=== PATIENT | female | born 1990 | race Caucasian/White ===

== ENCOUNTER 2017-06-08 11:05 | Inpatient (IN) | payer MEDICAID, SELFPAY ==
[2017-06-08 11:22] VITALS: BMI 48.4
[2017-06-08] MEDS: Lactated Ringers 1,000 ML 50 ML IV ×2 (11:42→14:54)
[2017-06-08 12:03] LABS: Hematocrit 33.6 % (37-47); Hemoglobin 10.9 g/dl (12.0-15.0); Mean Corp Hgb Conc 32.4 g/gl (32-36); Mean Corpuscular Hgb 27.4 pg (27.0-32.0); Mean Corpuscular Volume 84.4 fL (81-99); Mean Platelet Vol. 12.3 fl (6.2-12.0); Platelet Count 221 K/mm3 (150-450); RBC Distribution Width SD 46.5 fl (35.1-43.9); Red Blood Count 3.98 M/mm3 (4.2-5.4); Scan Indicated on CBC? Y/N NO; White Blood Count 9.3 K/mm3 (4.4-11.0)
[2017-06-08] MEDS: Oxytocin 30 units/NS 500 ml 30 UNITS/500 ML IV.SOLN IV (12:31)
[2017-06-08] MEDS: Mag Hydrox/Al Hydrox/Simeth 30 ML UDC PO (15:51)
[2017-06-08] MEDS: Oxytocin 30 units/NS 500 ml 30 UNITS/500 ML IV.SOLN 334 UNITS IV (17:25)
--- NOTE | 2017-06-08 17:39 | PCM.OB.VAG ---
Vaginal Delivery Maternal Presentation: Medically Indicated Induction Method of Induction: Pitocin, Amniotomy Medical Reason for Induction: - - polyhydramnios Amniotic Membrane Rupture Type: Artificial Amniotic Fluid Description: Clear Final EDYTA: 06/14/17 Final EDYTA Source: US <20 weeks Gestational age: 39 Weeks and 1 Days Date of Procedure: 06/08/17 Pre-Operative Diagnosis: labor Post-Operative Diagnosis: same Surgery/ Procedure Performed: Spontaneous Vaginal Delivery Type of Anesthesia: Epidural Description of Procedure: A vigorous female infant was delivered JERONIMO over intact perineum. Tight nuchal cord ?1 was easily reduced. The remainder the was not delivered with maternal pushing and gentle traction for 15 seconds. The patient was placed in Radha position and with another 15 seconds of pushing the shoulders rotated and delivered only gentle traction. No fundal pressure was given did the total time from head to total delivery was 32 seconds. The Pitocin infusion was initiated for active management of the third stage. The cord was clamped and cut quickly as the infant was not initially vigorous. The was attended to by the waiting nursing staff and integrated circuits inspector. The placenta was delivered spontaneously and intact. The cervix and vagina were intact. Sponge and needle counts were correct. A vaginal sweep was completed by me. Presentation: JERONIMO Placenta Disposition: [facility] Cord Vessel Description: 3 Vessels Nuchal Cord Compression: Without compression Cord Gases drawn per routine: ABG, VBG Cord Entanglement: Around neck x 1, tight Drain: Del Angel to straight drain Estimated Blood Loss: 300 A gender: Female (1 minute): 8 (5 minute): 9 Episiotomy Description: None Laceration: None Medications given after delivery: IV Pitocin Complications: None
--- NOTE | 2017-06-08 17:42 | PCM.HP.OB ---
History Date of Admission: 06/08/17 Gestational age: 39 History of this : 26-year-old 3 para 2 female with EDC of 06/14/2017 by last menstrual period confirmed by first trimester ultrasound who presents from the office for induction of labor. She was measuring large for gestational age. She had an estimated weight last week that revealed the infant was in the 93rd percentile with an amniotic fluid volume of 24 cm. Today repeat ultrasound was done revealed a vertex fetus with an amniotic fluid volume of 28.3 cm. Induction of labor was recommended. Patient's had no regular contractions. No vaginal bleeding or leaking of fluid. She has had good movements. She has been very uncomfortable the last couple of weeks. Past medical history significant for genital herpes, anxiety, obesity with BMI of 48, and she is rubella nonimmune, abnormal pap smear Metrical history: She has had 2 previous full-term vaginal deliveries without complications Family history: Noncontributory Past surgical history: Allergies No Known Allergies Allergy (Verified 03/13/17 19:22) Current Medications Acetaminophen (Tylenol) 325 - 650 mg PO Q4H PRN PRN PRN Reason: PAIN OR FEVER >100.4F Al Hydroxide/Mg Hydroxide (Mylanta Ii) 15 - 30 ml PO Q4H PRN PRN PRN Reason: INDIGESTION Last Admin: 06/08/17 15:51 Dose: 30 ml Citric Acid/Sodium Citrate (Bicitra) 30 ml PO UD PRN Penicillin G Potassium/Dextrose (Penicillin G Potassium) 3 mu in 50 mls @ 100 mls/hr IV Q4H [facility] Last Admin: 06/08/17 16:00 Dose: 100 mls/hr Lactated Ringer's () 1,000 mls @ 50 mls/hr IV .Q20H [facility] Last Admin: 06/08/17 14:54 Dose: 50 mls/hr Oxytocin/Sodium Chloride () 30 units in 500 mls @ 1 mls/hr IV .Q500H [facility] Last Admin: 06/08/17 12:31 Dose: 1 mls/hr Nalbuphine HCl (Nubain) 5 - 10 mg IV Q3H PRN PRN PRN Reason: PAIN (4-10/10) Ondansetron HCl (Zofran) 4 mg IV Q8H PRN PRN PRN Reason: NAUSEA Promethazine HCl (Phenergan (Ll)) 6.25 - 12.5 mg IV Q4H PRN PRN; Protocol PRN Reason: IF NAUSEA PERSISTS Sodium Chloride () 5 - 15 ml IV UD [facility] Last Admin: 06/08/17 12:11 Dose: Not Given Smoking Status: Current every day smoker Alcohol: None Drug Use: none Number of Fetus(es): 1 Review of Systems Constitutional: Denies: Chills, Fever Eyes: Denies: Double vision Cardiovascular: Denies: Chest Pain Respiratory: Denies: Cough Physical Exam General: Alert, Cooperative, No apparent distress Cardiovascular: Regular rate Lungs: Normal air movement Abdomen: Soft, Non-Distended, Gravid, Tender, - - large for gestation alge Extremities:: Other - edema 1+ Estimated gestational size: Large for gestational age Presentation: Cephalic Cervix Dilation (cm): 3 - AROM w/ large clear fluid Station: -3 Effacement (%): 70 Assessment/Plan 26-year-old 3 para 2 female at 39-1/7 weeks gestation for induction of labor due to polyhydramnios 1. Pitocin and artificial rupture membranes induction of labor 2. Estimated weight is less than 4500 g and pelvis is clinically adequate to expect vaginal delivery 3. Epidural or nitrous oxide as needed for pain control
--- NOTE | 2017-06-08 17:47 | HP.PCM_ITS ---
History Date of Admission: 06/08/17 Gestational age: 39 History of this : 26-year-old 3 para 2 female with EDC of 06/14/2017 by last menstrual period confirmed by first trimester ultrasound who presents from the office for induction of labor. She was measuring large for gestational age. She had an estimated weight last week that revealed the infant was in the 93rd percentile with an amniotic fluid volume of 24 cm. Today repeat ultrasound was done revealed a vertex fetus with an amniotic fluid volume of 28.3 cm. Induction of labor was recommended. Patient's had no regular contractions. No vaginal bleeding or leaking of fluid. She has had good movements. She has been very uncomfortable the last couple of weeks. Past medical history significant for genital herpes, anxiety, obesity with BMI of 48, and she is rubella nonimmune, abnormal pap smear Metrical history: She has had 2 previous full-term vaginal deliveries without complications Family history: Noncontributory Past surgical history: Allergies No Known Allergies Allergy (Verified 03/13/17 19:22) Current Medications Acetaminophen (Tylenol) 325 - 650 mg PO Q4H PRN PRN PRN Reason: PAIN OR FEVER >100.4F Al Hydroxide/Mg Hydroxide (Mylanta Ii) 15 - 30 ml PO Q4H PRN PRN PRN Reason: INDIGESTION Last Admin: 06/08/17 15:51 Dose: 30 ml Citric Acid/Sodium Citrate (Bicitra) 30 ml PO UD PRN Penicillin G Potassium/Dextrose (Penicillin G Potassium) 3 mu in 50 mls @ 100 mls/hr IV Q4H [facility] Last Admin: 06/08/17 16:00 Dose: 100 mls/hr Lactated Ringer's () 1,000 mls @ 50 mls/hr IV .Q20H [facility] Last Admin: 06/08/17 14:54 Dose: 50 mls/hr Oxytocin/Sodium Chloride () 30 units in 500 mls @ 1 mls/hr IV .Q500H [facility] Last Admin: 06/08/17 12:31 Dose: 1 mls/hr Nalbuphine HCl (Nubain) 5 - 10 mg IV Q3H PRN PRN PRN Reason: PAIN (4-10/10) Ondansetron HCl (Zofran) 4 mg IV Q8H PRN PRN PRN Reason: NAUSEA Promethazine HCl (Phenergan (Ll)) 6.25 - 12.5 mg IV Q4H PRN PRN; Protocol PRN Reason: IF NAUSEA PERSISTS Sodium Chloride () 5 - 15 ml IV UD [facility] Last Admin: 06/08/17 12:11 Dose: Not Given Smoking Status: Current every day smoker Alcohol: None Drug Use: none Number of Fetus(es): 1 Review of Systems Constitutional: Denies: Chills, Fever Eyes: Denies: Double vision Cardiovascular: Denies: Chest Pain Respiratory: Denies: Cough Physical Exam General: Alert, Cooperative, No apparent distress Cardiovascular: Regular rate Lungs: Normal air movement Abdomen: Soft, Non-Distended, Gravid, Tender, - - large for gestation alge Extremities:: Other - edema 1+ Estimated gestational size: Large for gestational age Presentation: Cephalic Cervix Dilation (cm): 3 - AROM w/ large clear fluid Station: -3 Effacement (%): 70 Assessment/Plan 26-year-old 3 para 2 female at 39-1/7 weeks gestation for induction of labor due to polyhydramnios 1. Pitocin and artificial rupture membranes induction of labor 2. Estimated weight is less than 4500 g and pelvis is clinically adequate to expect vaginal delivery 3. Epidural or nitrous oxide as needed for pain control
[2017-06-08] MEDS: Oxytocin 30 units/NS 500 ml 30 UNITS/500 ML IV.SOLN 167 UNITS IV (17:55)
[2017-06-08] MEDS: 0.9% Saline Lock 10 ML Syringe IV (19:30)
[2017-06-09] VITALS: BP 119/76; PULSE 83; RESP 20; TEMP 36.8
[2017-06-09] MEDS: Naproxen 250 MG Tablet PO ×2 (00:13→10:25)
[2017-06-09] MEDS: Acetaminophen 500 MG Tablet 1000 MG PO ×2 (03:53→17:53)
[2017-06-09 03:54] VITALS: BP 119/72; PULSE 73; RESP 18; TEMP 36.7
[2017-06-09 08:00] VITALS: BP 126/62; PULSE 90; RESP 16; TEMP 36.9
--- NOTE | 2017-06-09 09:51 | PCM.PN.OB ---
Subjective: Patient reports some back pain near epidural site - Physical Exam General: Alert, Oriented x3 Abdomen: Soft - ff mid & below umb, Non Tender, Non-Distended Extremities: No Calf Tenderness Vital Signs Temp Pulse Resp BP 98.4 F 90 16 126/62 H 06/09/17 08:00 06/09/17 08:00 06/09/17 08:00 06/09/17 08:00 Oxygen Delivery Method Room Air Weight: 273 lb 13.026 oz Body Mass Index (BMI) 48.4 Intake and Output for Last 24 Hours 06/07/17 06/08/17 06/09/17 23:59 23:59 23:59 Intake Total 2220 / 2220 Output Total 780 / 780 400 / 400 Balance 1440 / 1440 -400 / -400 Laboratory Tests Past 24 Hrs 06/08/17 06/08/17 11:40 11:40 WBC 9.3 RBC 3.98 L Hgb 10.9 L Hct 33.6 L MCV 84.4 MCH 27.4 MCHC 32.4 RDW 15.0 H RDW Differential 46.5 H Plt Count 221 MPV 12.3 H Blood Type A POSITIVE Antibody Screen NEGATIVE Assessment/Plan PPD#1 Routine care Back pain - cont meds PRN, heat to back
[2017-06-09 12:00] VITALS: BP 150/75; PULSE 74; RESP 16; TEMP 36.8
[2017-06-09 16:00] VITALS: BP 154/65; PULSE 53; RESP 16; TEMP 36.8
[2017-06-09 19:51] VITALS: BP 120/78; PULSE 65; RESP 18; TEMP 36.7; O2SAT 99
[2017-06-10 02:00] VITALS: BP 123/58; PULSE 62; RESP 18; TEMP 37; O2SAT 98
[2017-06-10] MEDS: Naproxen 250 MG Tablet PO (02:06)
[2017-06-10 07:44] VITALS: BP 116/72; PULSE 68; RESP 16; TEMP 36.8
[2017-06-10 08:40] VITALS: BP 130/79
--- NOTE | 2017-06-10 09:57 | PCM.DCVAG ---
Discharge Diet: No Restrictions Discharge Activity: May Drive, May Shower May resume sexual activity in: 4-6 weeks Weight Bearing Status: Weight bearing as tolerated Additional Instructions: If you experience any of the following, contact your healthcare provider. Bleeding that soaks a pad every hour for 2 hours Fever 100.4 or higher Unrelieved incision or abdominal pain Swelling, redness, discharge or bleeding from your incision or episiotomy site Your incision begins to separate Problems urinating (including inability to urinate or burning while urinating). Visual changes Severe headache Flu-like symptoms Pain or redness in one of both of your breasts Pain, warmth, tenderness or swelling in your legs, especially the calf area Frequent nausea and vomiting Symptoms of depression or anxiety If you experience any of the following, call 911 or go to the nearest Emergency Room. Chest pain Problems breathing Seizure activity Partial or complete paralysis of a body part, slurred speech, weakness or drooping of the face, or a sudden inability to walk or hold your balance Please f/u in 3-5 days for a blood pressure check Allergies/Adverse Reactions: Allergies No Known Allergies Allergy (Verified 03/13/17 19:22) Medications to take at Discharge Ferrous Sulfate 324 mg PO DAILY 06/08/17 Naproxen [Naprosyn] 250 - 500 mg PO Q8H PRN PRN #40 tab 06/10/17 The following prescriptions were given: Naproxen [Naprosyn] 250 - 500 mg PO Q8H PRN PRN #40 tab PRN Reason: Mild Pain (-07/14) Primary Care Physician: Care Physician,No Primary [Primary Care Provider] -
--- NOTE | 2017-06-10 09:58 | DCINST_ITS ---
Discharge Diet: No Restrictions Discharge Activity: May Drive, May Shower May resume sexual activity in: 4-6 weeks Weight Bearing Status: Weight bearing as tolerated Additional Instructions: If you experience any of the following, contact your healthcare provider. * Bleeding that soaks a pad every hour for 2 hours * Fever 100.4 or higher * Unrelieved incision or abdominal pain * Swelling, redness, discharge or bleeding from your incision or episiotomy site * Your incision begins to separate * Problems urinating (including inability to urinate or burning while urinating) . * Visual changes * Severe headache * Flu-like symptoms * Pain or redness in one of both of your breasts * Pain, warmth, tenderness or swelling in your legs, especially the calf area * Frequent nausea and vomiting * Symptoms of depression or anxiety If you experience any of the following, call 911 or go to the nearest Emergency Room. * Chest pain * Problems breathing * Seizure activity * Partial or complete paralysis of a body part, slurred speech, weakness or drooping of the face, or a sudden inability to walk or hold your balance * * Please f/u in 3-5 days for a blood pressure check Allergies/Adverse Reactions: Allergies No Known Allergies Allergy (Verified 03/13/17 19:22) Medications to take at Discharge Ferrous Sulfate 324 mg PO DAILY 06/08/17 Naproxen [Naprosyn] 250 - 500 mg PO Q8H PRN PRN #40 tab 06/10/17 The following prescriptions were given: Naproxen [Naprosyn] 250 - 500 mg PO Q8H PRN PRN #40 tab PRN Reason: Mild Pain (-07/14) Primary Care Physician: Care Physician,No Primary [Primary Care Provider] -
--- NOTE | 2017-06-10 09:59 | PCM.PN.OB ---
Subjective: No complaints - Physical Exam General: Alert, Oriented x3 Abdomen: Soft, Non Tender, Non-Distended - ff mid &below umb Extremities: No Calf Tenderness Vital Signs Temp Pulse Resp BP Pulse Ox 98.2 F 68 16 130/79 H 98 06/10/17 07:44 06/10/17 07:44 06/10/17 07:44 06/10/17 08:40 06/10/17 02:00 Oxygen Delivery Method Room Air Weight: 273 lb 13.026 oz Body Mass Index (BMI) 48.4 Intake and Output for Last 24 Hours 06/08/17 06/09/17 06/10/17 23:59 23:59 23:59 Intake Total 2220 / 2220 Output Total 780 / 780 400 / 400 Balance 1440 / 1440 -400 / -400 Assessment/Plan PPD#2 D/c home BP normal but had 2 elevated yesterday, f/u later this week for BP check in office
== END 2017-06-10 10:30 | disposition home or self-care (01) | DRG 373 ==
PROVIDERS: Admitting Provider Obstetrics & Gynecology; Visit Provider Obstetrics & Gynecology
DX: O40.3XX0 Polyhydramnios, third trimester, not applicable or unspecified (principal); Z68.42 Body mass index [BMI] 45.0-49.9, adult; O69.1XX0 Labor and delivery complicated by cord around neck, with compression, not applicable or unspecified; O36.63X0 Maternal care for excessive fetal growth, third trimester, not applicable or unspecified; O99.214 Obesity complicating childbirth; E66.9 Obesity, unspecified; O99.334 Smoking (tobacco) complicating childbirth; Z3A.39 39 weeks gestation of pregnancy; Z37.0 Single live birth
CPT/HCPCS: 59050; 85027; 86850; 86900; 99218; J7120; A4216; G0378

== ENCOUNTER 2019-05-15 07:42 | Observation (INO) | payer MEDICAID, SELFPAY ==
--- NOTE | 2019-05-09 14:04 | PCM.HP.BLA ---
History and Physical Date of Admission: 05/15/19 HPI: The patient is a 28 year old female presenting for pre-operative visit. She is scheduled for?TVH??without BSO, for?menorrhagia and dysmenorrhea, has completed child bearing, previous tubal on?05/15/19. ??Procedure discussed along with risks, benefits and complications. ?Other alternatives discussed for management. Consent form signed??Yes.? PAST MEDICAL HISTORY PAST MEDICAL HISTORY Diagnosis Date ? Abnormal Pap smear of cervix 2008,2009 ? ascus ? Anemia ? ? Anxiety ? ? Dog bite of ankle 2001 ? fracture ? ? finger, sport accident ? Herpes simplex virus (HSV) infection ? ? Obesity 07/07/2009 ? Secondary amenorrhea 06/27/2011 ? ? PAST SURGICAL HISTORY PAST SURGICAL HISTORY Procedure Laterality Date ? TUBAL LIGATION Bilateral 08/16/2017 ? L/s bilateral salpingectomy ? ? CURRENT MEDICATIONS Current Outpatient Medications Medication Sig Dispense Refill ? ibuprofen (MOTRIN) 800 mg tablet Take 1 tablet by mouth every 8 hours as needed for Pain. Take with food. 30 tablet 0 ? No current facility-administered medications for this visit.? ? ALLERGIES:?Doxycycline ? PERSONAL HISTORY:? SOCIAL HISTORY Social History ? Tobacco Use ? Smoking status: Current Some Day Smoker ? ? Packs/day: 0.50 ? ? Years: 1.00 ? ? Pack years: 0.50 ? Smokeless tobacco: Never Used Substance Use Topics ? Alcohol use: No ? Drug use: No ? FAMILY HISTORY:? FAMILY HISTORY FAMILY HISTORY Problem Relation Age of Onset ? Asthma Mother ? ? Hypertension Father ? ? Cancer Maternal Grandfather ?STOMACH CANCER ? Diabetes Paternal Grandfather ? ? Hypertension Paternal Grandfather ? ? REVIEW OF SYMPTOMS: GENERAL: denies fevers or chills ENDOCRINOLOGY: has not been on steroids Cardiology : denies palpitations or chest pain Respiratory: denies SOB or cough Hematology: denies history of prolonged bleeding or easy bruising or VTE Allergy: Denies history of personal or family history of allergy to anesthesia ? PHYSICAL EXAMINATION: ? VITALS:?not currently . ? GENERAL:??The patient is well nourished, well hydrated in no acute distress. ?, The patient is oriented to time, place, and person. NECK:?Supple. No lynphadenopathy, normal thyroid, no thyromegaly. LUNGS:?Clear to auscultation bilaterally. no wheezes, rhonchi or rales HEART:?Regular rate and rhythm, Normal heart sounds and No murmurs or gallops ? PELVIC US 08/09/18: Report Summary: Overall impression: - Normal, anteverted uterus - No fibroids or polyps noted - EMS 7.7 mm - Normal bilateral ovaries - No free fluid in pelvic CDS. Recommendations / therapy: Clinical correlation. Indication: Abnormal Uterine Bleeding. History: Last menstrual period: 07/22/2018. 19th day of cycle. Gynecological History: Contraception: sterilization. Gynecological Ultrasonography: Uterus: normal, anteverted. Size: Longitudinal 88 mm. Anterio- posterior 44 mm. Transverse 47 mm. Volume: 95.3 ?ml. Endometrium: endometrium clearly visualized. Endometrium thickness total: 7.7 mm. Right Ovary: normal. Visible. Morphology: normal morphology. Right Ovary size: 23 mm x 21 mm x 18 mm. Volume: 4.6 ml. Left Ovary: normal. Visible. Morphology: normal morphology. Left Ovary size: 31 mm x 29 mm x 23 mm. Volume: 10.8 ml. Cul de Sac / Pouch of Stan: no free fluid visible. ? PAP 06/2016- negative EMB_ not indicated ? IMPRESSION:menorrhagia, deep dyspareunia, dysmenorrhea, postcoital bleeding ? PLAN:???28-year-old female who's completed childbearing who desires definitive therapy for her menorrhagia and dysmenorrhea in the form of a hysterectomy. ?We discussed that there is no guarantee for resolution of pelvic pain or dyspareunia after hysterectomy, and that she might need to undergo further therapies for this. ?Patient states understanding and agreement with plan. ?She understands she will permanently be unable to bear children. The risks/benefits/alternatives and personal involved for the planned?total vaginal hysterectomy?were reviewed with the patient. Her questions were answered to her satisfaction and she desires to proceed. ?Consent was signed. ?I reviewed with her postop instructions and expectations. ? ? I have reviewed and updated past medical and surgical history, medications and allergies. this history and physical was completed in my office on 05/09/2019.?
[2019-05-15] VITALS (16 sets, daily range): BP systolic 92–128; BP diastolic 43–78; PULSE 49–110; RESP 16–20; TEMP 36.2–37.1; O2SAT 88–100; BMI 45.7
[2019-05-15 05:51] LABS: Bedside Glucose 75 mg/dL (70-110)
[2019-05-15 06:04] LABS: Internal QC Validated? YES +Cl - CLEAR BKGD; Pregnancy, Urine Negative Negative
[2019-05-15] MEDS: Acetaminophen 500 MG Tablet 1000 MG PO ×3 (06:06→18:31)
[2019-05-15] MEDS: Gabapentin 600 MG Tablet PO (06:06)
[2019-05-15] MEDS: Celecoxib 200 MG Capsule 400 MG PO (06:06)
[2019-05-15] MEDS: Phenazopyridine 95 MG Tablet 190 MG PO (06:07)
[2019-05-15] MEDS: Enoxaparin 40 MG/0.4 ML Syringe SC (06:10)
[2019-05-15] MEDS: Lactated Ringers 1,000 ML 40 ML IV ×3 (06:18→21:04)
[2019-05-15] MEDS: Magnesium Sulfate 4gm/100mL 4 GM/100 ML IV.SOLN. IV (06:19)
[2019-05-15 06:49] LABS: Hematocrit 34.1 % (37-47); Hemoglobin 10.8 g/dL (12.0-15.0); Mean Corp Hgb Conc 31.7 g/dL (32-36); Mean Corpuscular Hgb 26.4 pg (27.0-32.0); Mean Corpuscular Volume 83.4 fL (81-99); Mean Platelet Vol. 12.8 fl (6.2-12.0); Platelet Count 224 K/mm3 (150-450); RBC Distribution Width CV 14.8 % (11.6-14.6); RBC Distribution Width SD 45.1 fl (35.1-43.9); Red Blood Count 4.09 M/mm3 (4.2-5.4)
[2019-05-15] MEDS: Cefazolin 2 GM in 0.9% Normal Saline 100 ML IV (07:30)
--- NOTE | 2019-05-15 07:30 | HYST_PTH ---
PATIENT: PEDRO DREW LOC: [facility] U#:[id number] AGE/SX: 28/F ROOM: [facility] RE05/15/[address]: Dr. Erin Watson MD : 1990 BED: 1 DIS: 05/16/2019 SPEC #: [id number] RECD: 05/15/19 09:08 STATUS: PRATEEK CHARLEE #: [id number] DAVION: 05/15/19 07:[address]: Erin Watson DEPT: SURGICAL PATHOLOGY RECD BY: Clinton Childs ENTERED: 05/15/19 11:39 SP TYPE: HYSTERECT OTHR DR: No Primary Care Phys Tissues: Uterus, NOS Procedures: Surgery Specimen Level V HEADER OPERATION: Vaginal hysterectomy, cystoscopy PRE-OP DIAGNOSIS: Abnormal uterine bleeding, pelvic pain TISSUE SUBMITTED: Uterus MICROSCOPIC DIAGNOSIS Uterus, hysterectomy: Cervix - mild chronic inflammation. Endometrium - secretory endometrium. Myometrium - adenomyosis. AM:tab 05/16/19 MICROSCOPIC DESCRIPTION Slides are reviewed. GROSS DESCRIPTION Received in fixative is one container labeled with the patient's name and designated uterus. The specimen consists of a hysterectomy specimen consisting of uterus with cervix weighing 95 gm and measuring 8 x 5.5 x 5 cm. The serosal surface is godfrey, glistening. Multiple instrumentation brown are noted. The ectocervical mucosa is unremarkable. The external os is circular in contour. The endocervical canal measures 3.5 cm in length and the endocervical mucosa is godfrey, glistening and unremarkable. The triangular endometrial cavity measures 4.5 cm in length and 0.5 cm in width. The endometrium is godfrey, glistening without any mass lesion and measures up to 0.2 cm in thickness. Sections of the uterine wall do not reveal any mass lesion and measures up to 2.3 cm in thickness. Electronics Engineer sections are submitted in six cassettes as follows: 1 - anterior cervix, 2 - posterior cervix, 3 & 4 - anterior uterine wall, 5 & 6 - posterior uterine wall. / SJ:tab 05/15/19 TC:5 CPT: 91295
[2019-05-15] MEDS: dexAMETHasone 10 MG/ML Vial 8 MG IV (07:45)
[2019-05-15] MEDS: Ondansetron 4 MG/2 ML Vial IV (08:00)
--- NOTE | 2019-05-15 08:42 | PCM.OPRPT ---
Report of Operation Date of Procedure: 05/15/19 Pre-Operative Diagnosis: Menorrhagia, abnormal uterine bleeding, dysmenorrhea, chronic pelvic pain Post-Operative Diagnosis: Same plus adenomyosis Surgery/Procedure Performed:: Vaginal hysterectomy Description of Surgical Findings:: Boggy appearing uterus, normal vagina, urethra, and cervix. Normal-appearing ovaries concrete vault maker: Ankita Garcia concrete vault maker: Marge Hunt [facility] Type of Anesthesia:: General Anesthesiologist: Mona Morin Special Medications: none Specimen's removed: uterus and cervix Drains: olmstead Estimated Blood Loss (mL): 10 Fluids Replaced: 500cc Description of Procedure: The patient was taken to the operating room where she was prepped and draped in the normal sterile fashion in the dorsal lithotomy position. A weighted speculum was placed in the vagina and the anterior lip of the cervix was grasped with a Beck clamp. The vaginal epithelium was infiltrated circumferentially around the cervix with 1% Xylocaine solution. An incision was made across the anterior cervix from 3-9 o'clock with a scalpel and the vaginal epithelium was dissected back with blunt and sharp dissection. The anterior colpotomy incision was made sharply. Entry into the anterior cul-de-sac was confirmed by visualization of the uterine fundus and bowel behind the uterus. The lower part of the vaginal epithelium by the cervix was clamped with James clamps, transected and suture-ligated. A second pedicle was secured in a James clamps ensuring that the anterior peritoneum was contained within it. This was clamped, transected and suture ligated and hemostasis was noted. The uterus was then brought through the anterior colpotomy incision and the utero-ovarian ligaments were clamped, transected and suture-ligated. The remaining portions of the cardinal ligaments and uterosacral ligaments were clamped with James clamps, transected and suture ligated. Excellent hemostasis was noted. Russ appeared normal. The tubes had been previously removed. The pedicles were all examined again and found to be hemostatic. The vaginal cuff was then reapproximated horizontally with interrupted 0 Vicryl [id number] sutures. Care was taken to ensure that the midportion of the vaginal cuff was attached to the lateral uterosacral ligaments. Excellent support was noted. The Olmstead was left to straight drain. The vaginal sweep was completed by me. All sponge lap and needle counts were correct. Patient was awakened and taken to theher recovery room in stable condition. Grafts/Implants Used: none - Complications none - Admit VTE Documentation VTE Present on Admission: No VTE Mechan Device Prophylaxis: SCD's VTE Pharm Prophylaxis ordered?: Yes
[2019-05-15] MEDS: Ketorolac 30 MG/ML Syringe IV ×2 (11:44→18:31)
[2019-05-15] MEDS: oxyCODONE 5 MG Tablet PO ×3 (12:36→21:04)
[2019-05-15] MEDS: Docusate Sodium 100 MG Capsule PO ×2 (12:36→21:04)
[2019-05-16 00:03] VITALS: BP 125/55; PULSE 96; RESP 16; TEMP 36.8; O2SAT 97
[2019-05-16] MEDS: Acetaminophen 500 MG Tablet 1000 MG PO ×2 (00:05→06:12)
[2019-05-16] MEDS: Ketorolac 30 MG/ML Syringe IV ×2 (00:06→05:56)
[2019-05-16 05:46] VITALS: BP 113/62; PULSE 68; RESP 16; TEMP 36.8; O2SAT 100
[2019-05-16 05:56] LABS: Hemoglobin 9.4 g/dL (12.0-15.0); Mean Corp Hgb Conc 31.3 g/dL (32-36); Mean Corpuscular Hgb 26.4 pg (27.0-32.0); Mean Corpuscular Volume 84.3 fL (81-99); Mean Platelet Vol. 12.9 fl (6.2-12.0); Platelet Count 196 K/mm3 (150-450); RBC Distribution Width CV 14.9 % (11.6-14.6); RBC Distribution Width SD 45.6 fl (35.1-43.9); Red Blood Count 3.56 M/mm3 (4.2-5.4); White Blood Count 11.8 K/mm3 (4.4-11.0)
[2019-05-16 07:26] VITALS: O2SAT 97
--- NOTE | 2019-05-16 08:42 | PN.OBGYN_ITS ---
Subjective: pain well controlled, average lochia, no N/V. Bol[place]ar. regular diet - Physical Exam Vitals/I&O's: Vital Signs Temp Pulse Resp BP Pulse Ox 98.3 F 68 16 113/62 97 05/16/19 05:46 05/16/19 05:46 05/16/19 05:46 05/16/19 05:46 05/16/19 07:26 Oxygen Flow Rate (L/min) 6 Oxygen Delivery Method Room Air Weight: 117.2 kg Body Mass Index (BMI) 45.7 Intake and Output for Last 24 Hours 05/14/19 05/15/19 05/16/19 23:59 23:59 23:59 Intake Total 2198 / 2778 1747.33 / 1747.33 Output Total 375 / 1025 1350 / 1350 Balance 1823 / 1753 397.33 / 397.33 General: Alert, Cooperative, No apparent distress Abdomen: Soft, Non-Distended, - - appropriate tenderness Extremities: No edema Laboratory Results 05/16/19 05:20: WBC 11.8 H, RBC 3.56 L, Hgb 9.4 L, Hct 30.0 L, MCV 84.3, MCH 26.4 L, MCHC 31.3 L, RDW Std Deviation 45.6 H, RDW Coeff of Rustam 14.9 H, Plt Count 196, MPV 12.9 H Current Medications Acetaminophen (Tylenol) 1,000 mg PO Q6 [facility] Last Admin: 05/16/19 06:12 Dose: 1,000 mg Documented by: Docusate Sodium (Colace) 100 mg PO BID [facility] Last Admin: 05/15/19 21:04 Dose: 100 mg Documented by: Enoxaparin Sodium (Lovenox) 40 mg SC DAILY [facility] Ketorolac Tromethamine (Toradol) 30 mg IV Q6 [facility] Stop: 05/16/19 18:01 Last Admin: 05/16/19 05:56 Dose: 30 mg Documented by: Magnesium Oxide (Mag-Ox 400) 400 mg PO DAILY PRN PRN PRN Reason: Constipation Nicotine (Nicoderm Cq (Pbkc)) 21 mg TRANSDERM. DAILY [facility] Last Admin: 05/15/19 17:06 Dose: 21 mg Documented by: Ondansetron HCl (Zofran Odt) 4 mg PO Q6H PRN PRN PRN Reason: NAUSEA Oxycodone HCl (Oxyir) 5 - 10 mg PO Q4H PRN PRN PRN Reason: Pain Score 4-10/10 Last Admin: 05/15/19 21:04 Dose: 10 mg Documented by: Sodium Chloride () 10 - 40 ml IV UD PRN PRN Reason: SALINE FLUSH Medical Necessity - Tobacco Use Smoking Status: Current every day smoker Tobacco Use: Cigarettes Assessment/Plan POD#1 s/p TVH doing well ready for d/c
--- NOTE | 2019-05-16 08:42 | DCINST_ITS ---
Discharge Diet: No Restrictions Discharge Activity: Return to Normal Activity, May Not Drive - while taking narcotic pain medications., May Shower May resume sexual activity in: 6-8 weeks Call your doctor if your incision/area has: Continuous Slow Oozing, Sudden Increased Bleeding, Increased Pain/ Swelling, Increased Redness, Foul Smelling Discharge Call your doctor if you observe: Fever of 101 or Higher, Inability to urinate, Inability to have a bowel movement, Using more than one pad per hour Allergies/Adverse Reactions: Allergies No Known Allergies Allergy (Verified 03/13/17 19:22) Medications to take at Discharge Acetaminophen [Tylenol Extra Strength] 1,000 mg PO Q8 PRN 20 Days #60 tab 05/16/19 Docusate Sodium [Colace] 100 mg PO BID PRN PRN #60 cap 05/16/19 Ibuprofen [Motrin] 800 mg PO TID PRN PRN #60 tab 05/16/19 Oxycodone [Oxyir] 5 mg PO Q4H PRN PRN 7 Days #28 tablet 05/16/19 The following prescriptions were given: Docusate Sodium [Colace] 100 mg PO BID PRN PRN #60 cap PRN Reason: Constipation Transmission Status: Pending to [facility] Ibuprofen [Motrin] 800 mg PO TID PRN PRN #60 tab PRN Reason: Pain Transmission Status: Pending to [facility] Oxycodone [Oxyir] 5 mg PO Q4H PRN PRN 7 Days #28 tablet PRN Reason: severe pain Transmission Status: Sent to [facility] Acetaminophen [Tylenol Extra Strength] 1,000 mg PO Q8 PRN 20 Days #60 tab PRN Reason: Pain Or Fever Transmission Status: Pending to [facility] Primary Care Physician: Care Physician,No Primary [Primary Care Provider] - Test Results: Test results from this visit will be discussed in further detail at your follow- up appointment, if applicable. Please Follow Up With: Erin Watson MD - [phone] When: 2 and 6 weeks or as needed
[2019-05-16] MEDS: oxyCODONE 5 MG Tablet PO (08:57)
[2019-05-16] MEDS: Docusate Sodium 100 MG Capsule PO (08:57)
== END 2019-05-16 09:13 | disposition home or self-care (01) ==
LOC: MS3 05-16 10:17
PROVIDERS: Admitting Provider Obstetrics & Gynecology; Referring Provider Obstetrics & Gynecology; Visit Provider Obstetrics & Gynecology
PROC: (CPT 58260; principal; 2019-05-15 07:10)
DX: N92.1 Excessive and frequent menstruation with irregular cycle (principal); N80.0 Endometriosis of uterus; N94.6 Dysmenorrhea, unspecified; N93.0 Postcoital and contact bleeding; K21.9 Gastro-esophageal reflux disease without esophagitis; E66.9 Obesity, unspecified; Z68.42 Body mass index [BMI] 45.0-49.9, adult; Z71.3 Dietary counseling and surveillance; F17.210 Nicotine dependence, cigarettes, uncomplicated
CPT/HCPCS: 58260; 36415; 81025; 82962; 85027; 86850; 86900; 86901; 88307; 96374; 96376; 99218; 99251; J7120; G0378; G0379; G0463; J2405

== ENCOUNTER 2022-03-10 09:03 | Emergency (ER) | payer MEDICAID, SELFPAY ==
[2022-03-10 09:04] VITALS: BP 171/93; PULSE 92; RESP 16; TEMP 36.4; O2SAT 100; BMI 49.6
--- NOTE | 2022-03-10 09:26 | CT_ITS ---
STUDY: CT ABDOMEN AND PELVIS WITH CONTRAST REASON FOR EXAM: Female, 31 years old. Two-week history of abdominal pain and diarrhea. RADIATION DOSAGE (If Supplied By Facility): CTDIvol = ( 18.74 ) mGy, DLP = ( 1289.85 ) mGycm TECHNIQUE: Transaxial images were obtained from the dome of the diaphragm to the symphysis pubis without oral contrast. IV 100mL Isovue-370 was administered. Sagittal and coronal images were reconstructed. Individualized dose optimization techniques were used for this CT. COMPARISON: None. FINDINGS: There is a 2.8 mm noncalcified nodule in the peripheral lateral aspect of the right lower lobe as seen on axial image #6. A 12 month follow-up CT scan of the chest is recommended. The visualized portions of the heart are within normal limits. Normal liver. Normal gallbladder and extrahepatic biliary system. There is a 1.1 cm x 1.4 cm well-defined rounded hypodense nodule in the peripheral lateral aspect of the lower pole of the spleen. This is not a typical cyst. Normal pancreas. Normal bilateral adrenal glands. Normal right kidney. Normal left kidney. Normal visualized stomach. Normal small intestine. Normal colon. The appendix is visualized and appears normal. Normal abdominal aorta. Normal inferior vena cava. Normal retroperitoneum. Small lymph nodes are seen in the mesenteric fat in the right lower quadrant suggestive of mesenteric adenitis. Normal urinary bladder. A small amount of free fluid is seen in the pelvis. There is a small umbilical hernia containing fat. Normal osseous structures. CT/Abdomen/Pelvis W IV Cont ONLY IMPRESSION: Small amount of free fluid is seen in the pelvis. 1.17 x 1.4 cm well-defined rounded hypodense nodule in the peripheral areas of the lower pole of the spleen. This is not a typical cyst. Electronically Signed: Lee Patel MD at 10:18 EDT ,
--- NOTE | 2022-03-10 09:27 | ED.VIS.GI ---
HPI HPI - GI History of Present Illness Chief Complaint: Abd Pain Detail of Chief Complaint: Abdominal cramping Informant: patient Abdominal Pain/Flank Pain Onset: Weeks Context: Gradual Onset Timing: Continuous Quality: Cramping Location: Diffuse Current Severity: Mild Maximum Severity: Mild Worsened by: Nothing Relieved by: Nothing Nausea/Vomiting/Emesis GI Symptom: Negative for Nausea or Vomiting Diarrhea/Melena/Hematochezia GI Symptom: Positive for Diarrhea and Hematochezia; Negative for Melena Onset: Days Stool Quality: Positive for Loose Severity: Mild Associated Symptoms Associated Symptoms: Negative for Dysuria, Frequency, Hematuria or Urgency Narrative Narrative: 31-year-old female history of anemia and prior partial hysterectomy. States she has had abdominal cramping for 2 weeks has been constant. Associated diarrhea and small amounts at times of bright red blood. No clots. No melena. No fever. No weight loss. No nausea or vomiting. No dysuria. No prior history. Prior similar symptoms: No Recent Illness/Hospitalization: No PFSH PFSH Medical History no medical history Home Medications docusate sodium 100 mg capsule 100 mg PO BID PRN PRN Constipation #60 caps 05/16/19 [Rx Last Taken Unknown] ibuprofen 800 mg tablet 800 mg PO TID PRN PRN Pain #60 tabs 05/16/19 [Rx Last Taken Unknown] Allergy/AdvReac Type Severity Reaction Status Date / Time No Known Allergies Allergy Verified 03/10/22 09:05 Social History Smoking Status: Current every day smoker tobacco type: cigarettes ROS ROS ED ROS Narrative Abdominal pain. Review of Systems ROS Unobtainable: Denies due to encephalopathy Constitutional Constitutional ED: Denies chills or fever(s) ENT ENT ED: Denies ear pain Cardiovascular Cardiovascular: Denies chest pain or palpitations Respiratory/Chest Respiratory/Chest: Denies cough or dyspnea Gastrointestinal Gastrointestinal: Reports abdominal pain and diarrhea; Denies constipation, melena, nausea or vomiting Genitourinary Genitourinary ED: Denies dysuria or hematuria Musculoskeletal Musculoskeletal: Denies arthralgias Integumentary Denies abscess Neurologic Neurologic: Denies headache(s) Psychiatric Psychiatric: Denies anxiety Endocrine Endocrinology: Denies polydipsia Hematologic/Lymphatic Hematologic/Lymphatic: Denies easy bleeding Allergic/Immunologic Allergic/Immunologic ED: Denies mouth swelling or tongue swelling EXAM Physical Exam Narrative Exam Narrative: 11-year-old female no acute distress. Vital signs are stable afebrile. H EENT exam unremarkable. Neck nontender no lymphadenopathy. Lungs clear to auscultation bilaterally. Heart regular rhythm no murmur. Abdomen soft, nondistended, no peritoneal signs. Positive bowel sounds. No obstruction. Moving all 4 extremities. Neurovascular intact. Nontender no edema. Back nontender. Neurologic exam normal. Const Vital Signs: 03/10/22 09:04 Temperature 97.6 F L Temperature Source Temporal Pulse Rate 92 Respiratory Rate 16 Blood Pressure 171/93 H Blood Pressure Mean 119 Pulse Ox 100 Oxygen Delivery Method Room Air Positive well nourished, well developed and obese; Negative for cachectic, contractures or unkempt General Appearance ED: well developed and NAD; Negative for unkempt, cachectic, contractures or pallor Nutritional Appearance: obese; Negative for cachectic HEENT Reports moist mucous membranes normocephalic and atraumatic; Negative for trauma or tenderness Eyes PERRL and EOMs intact bilaterally General Eye ED: Negative for pale conjunctiva or scleral icterus Neck no lymphadenopathy, supple and no JVD General: Negative for tenderness Carotids: Negative for other Lymph Lymphatic: Negative for other Resp normal respiratory effort and clear to auscultation bilaterally Effort and Inspection: Negative for respiratory distress or retractions Auscultation: Negative for rales, rhonchi or wheezes Cardio regular rate, regular rhythm, S1 normal heart sound, S2 normal heart sound and no murmurs Rate: Negative for bradycardia Rhythm: Negative for abnormal rhythm GI non-tender, non-distended and no masses Inspection: Negative for abdominal distention Auscultation: normoactive bowel sounds Palpation: soft; Negative for tender, guarding or rigid Back/Spine no CVA tenderness General Back: Negative for CVA tenderness Cervical Spine: Negative for cervical spine tenderness Thoracic Spine / Upper Back: Negative for thoracic spinal tenderness Lumbar Spine / Lower Back: Negative for lumbar spinal tenderness Coccyx: Negative for other Extremity full ROM General Extremety ED: Negative for edema or tenderness General Extremity: Negative for edema Neuro CN's II-XII intact bilaterally, moves all extremities and no sensory deficits noted Sensorium / Orientation: alert, oriented to person, oriented to place and oriented to time; Negative for orientation impaired, confused, lethargic or stuporous Sensory Exam: No sensory level loss detected Motor Exam: strength 5/5 throughout; Negative for general weakness Psych mental status grossly normal and thought process normal Appearance: Negative for unkempt Attitude: No agitated Mood & Affect: Negative for depressed, anxious or tearful Skin no wounds General Skin Exam: Negative for jaundice or pallor Lesions: no lesions and No lesion noted Rashes: no rashes Trauma: Negative for abrasion Nails: Negative for discolored MDM MDM MDM Narrative Medical decision making narrative: 31-year-old female complaining of abdominal discomfort for 2 weeks. Exam benign. CAT scan labs being obtained. She did not want to need anything at this time for pain and nausea. Repeat exam she is doing well. She will be discharged to home. Lab Data Attestation: I reviewed the patient's lab results. Lab results narrative: CBC normal white count 7.4. H&H 12.2 and 36. Platelets 257. Electrolytes unremarkable gap of 8 normal BUN and creatinine. Normal liver enzymes. Normal lipase at 137. Urinalysis negative. No whites, red cells nor bacteria nor nitrates. CAT scan unremarkable other than atypical spleen cyst that may require follow-up. I will discuss that with the patient. Labs: Laboratory Results - last 24 hr 03/10/22 03/10/22 03/10/22 09:40 09:40 10:26 WBC 7.4 RBC 4.20 Hgb 12.2 Hct 36.3 L MCV 86.4 MCH 29.0 MCHC 33.6 RDW Std Deviation 41.3 RDW Coeff of Rustam 13.1 Plt Count 257 MPV 11.4 Immature Gran % (Auto) 0.400 Neut % (Auto) 59.6 Lymph % (Auto) 33.9 [place] % (Auto) 4.1 Eos % (Auto) 1.6 Baso % (Auto) 0.4 Absolute Neuts (auto) 4.4 Absolute Lymphs (auto) 2.50 Nucleated RBC % 0 Sodium 140 Potassium 3.7 Chloride 108 H Carbon Dioxide 24.0 Anion Gap 8 BUN 12 Creatinine 0.85 Estim Creat Clear Calc 80.78 Est GFR (MDRD) Af Amer 102 Est GFR (MDRD) Non-Af 84 BUN/Creatinine Ratio 14.2 Glucose 104 Calcium 9.4 Total Bilirubin 0.30 AST 8 L ALT 27 Alkaline Phosphatase 59 Total Protein 7.3 Albumin 3.5 Globulin 3.8 Albumin/Globulin Ratio 0.9 Lipase 137 Urine Color Yellow Urine Clarity Sl. Cloudy Urine pH 7.0 Ur Specific [place] 1.005 Urine Protein Negative Urine Glucose (UA) Normal Urine Ketones Negative Urine Occult Blood Negative Urine Nitrite Negative Urine Bilirubin Negative Urine Urobilinogen Normal Ur Leukocyte Esterase Negative Urine RBC 0 SEEN Urine WBC 0 SEEN Ur Squamous Epith Cells 0-5 SEEN Urine Bacteria 0 SEEN Urine Mucus 0 SEEN Radiography Diagnostic Testing: Clinical Impression(s) from Imaging Studies Abdomen/Pelvis CT 03/10/22 09:26 IMPRESSION: Small amount of free fluid is seen in the pelvis. 1.17 x 1.4 cm well-defined rounded hypodense nodule in the peripheral areas of the lower pole of the spleen. This is not a typical cyst. Electronically Signed: Lee Patel MD at 10:18 EDT Reading Location ID and State: [facility] / [place] , Service support , Discharge Plan Triage Chief Complaint: Abd Pain ED Provider: Saud Hackett Dx/Rx/DC Orders Clinical Impression: Abdominal pain Instructions: Abdominal Pain Prescriptions: No Action ibuprofen 800 MG tablet 800 mg PO TID PRN PRN (Reason: Pain) Qty: 60 1RF docusate sodium 100 MG capsule 100 mg PO BID PRN PRN (Reason: Constipation) Qty: 60 1RF Primary Care Provider: Abdelrahman Downey Referrals: Abdelrahman Downey DO [Primary Care Provider] - 1 Week if not improving Activity Restrictions/Additional Instructions: Your lab tests were unremarkable. CAT scan showed a small cyst on your spleen. They may want to follow that up with another CAT scan in a year. There is a small amount of fluid in your pelvis you might have a small ruptured ovarian cyst. Motrin Tylenol for pain. Follow-up as needed. Disposition Disposition: Home, Self Care
[2022-03-10 09:48] LABS: Absolute Neutrophil Count 4.4 X10^3/uL (2.0-7.7); Basophil# 0.03 X10^3/uL; Basophil% 0.4 % (0-1); Eosinophil# 0.12 X10^3/uL; Eosinophils% 1.6 % (0-5); Hematocrit 36.3 % (37-47); Hemoglobin 12.2 g/dL (12.0-15.0); Lymphocyte % 33.9 % (19-41); Mean Corp Hgb Conc 33.6 g/dL (32-36); Mean Corpuscular Volume 86.4 fL (81-99); Mean Platelet Vol. 11.4 fl (6.2-12.0); Monocyte% 4.1 % (0-10); NRBC Flagged by Analyzer 0 % (0-5); Neutrophil % 59.6 % (47-70); Platelet Count 257 K/mm3 (150-450); RBC Distribution Width CV 13.1 % (11.6-14.6); RBC Distribution Width SD 41.3 fl (35.1-43.9); White Blood Count 7.4 K/mm3 (4.4-11.0)
[2022-03-10 10:04] LABS: Albumin, Serum 3.5 g/dL (3.2-5.0); BUN 12 mg/dL (7-18); BUN/Creat Ratio 14.2 RATIO (10-20); Creatinine, Serum 0.85 mg/dL (0.55-1.02); EST Glomerular Filtration Rate 84 mL/min (>60); Est Glom Filt Rate - Afr Amer 102 mL/min (>60); Estimated Creatinine Clearance 80.78 ml/min; Glucose 104 mg/dL (74-106); Protein, Total 7.3 g/dL (6.4-8.2)
[2022-03-10 10:05] LABS: ALB/GLOB Ratio 0.9 RATIO (0.9-2.4); AST(SGOT) 8 U/L (15-37); Alanine Aminotransfer ALT/SGPT 27 U/L (13-56); Alkaline Phosphatase 59 U/L (45-117); Anion Gap 8 (5-15); Calcium,Total 9.4 mg/dL (8.5-10.1); Chloride 108 mmol/L (98-107); Globulin 3.8 g/dL (2.2-4.2); Lipase 137 U/L (73-393); Potassium 3.7 mmol/L (3.5-5.1); Sodium Level 140 mmol/L (136-145)
[2022-03-10 10:37] LABS: Bacteria 0 SEEN /hpf (None Seen); Mucous, Urine 0 SEEN /hpf (<or=2+); Red Blood Cells-Urine 0 SEEN /hpf (0-5); White Blood Cells 0 SEEN /hpf (0-5)
[2022-03-10 10:39] LABS: Color, Urine Yellow (Yellow); Glucose, Dipstick Normal (Normal); Ketone-Dipstick Negative (Negative); Leukocyte Esterase-Dipstick Negative /ul (Negative); Nitrite-Dipstick Negative (Negative); Occult Blood-Urine Negative /ul (Negative); Protein-Dipstick Negative (Negative); Specific Gravity, Urine 1.005 (1.002-1.030); Urine Bilirubin Dipstick Negative (Negative); Urine Clarity Sl. Cloudy (Clear); Urine Urobilinogen Normal (Normal)
[2022-03-10 10:48] LABS: Squamous Epithelial Cells - UA 0-5 SEEN /hpf (5-10)
== END 2022-03-10 11:06 | disposition home or self-care (01) ==
PROVIDERS: Emergency Provider Emergency Medicine; PCP Student in an Organized Health Care Education/Training Program; Visit Provider Emergency Medicine
DX: R10.9 Unspecified abdominal pain (principal); F17.210 Nicotine dependence, cigarettes, uncomplicated
CPT/HCPCS: 74177; 80053; 81001; 83690; 85025; 99283; Q9967; A4216

== ENCOUNTER 2023-10-29 11:36 | Emergency (ER) | payer MEDICAID, SELFPAY ==
[2023-10-29 11:36] VITALS: BP 153/103; BP 161/110; PULSE 111; PULSE 99; RESP 18; RESP 20; TEMP 37.2; O2SAT 93; O2SAT 97
[2023-10-29 11:53] VITALS: BMI 47.6
--- NOTE | 2023-10-29 11:57 | EDS_ITS ---
HPI HPI - URI History of Present Illness Chief Complaint: Cough Informant: patient Narrative Narrative: Patient states she has had cough that has become worse over the last 3 days, she has been having some wheezing with exertion, and some mild shortness of breath with coughing fits as well. She denies any exertional angina symptoms but she has had some upper nonlateralizing sharp chest pains only when she coughs. No edema in her legs. Contact with someone who had bronchitis recently this past week, so she is concerned she may have that. She went to urgent care out of all of this concern but she had a history of a spot on her lung, so urgent care sent her here to the ER. She states this was done a little over a year ago, she was supposed to follow-up with her doctor for a CT scan earlier this year but did not, however she was in the ER for some abdominal pain and states they did a CT scan and told her about the nodule on the right lung was then as well. She is a smoker. ROS ROS ED Constitutional Constitutional ED: Reports chills, fever(s), malaise and subjective Eyes Eyes: Denies change in vision or diplopia ENT ENT ED: Reports ear pain right, nasal congestion, rhinorrhea and sore throat Cardiovascular Cardiovascular: Denies chest pain or palpitations Respiratory/Chest Respiratory/Chest: Reports cough, dyspnea on exertion, sputum and wheezing Gastrointestinal Gastrointestinal: Reports diarrhea; Denies abdominal pain, nausea or vomiting Genitourinary Genitourinary ED: Denies dysuria or hematuria Musculoskeletal Musculoskeletal: Denies back pain or neck pain Integumentary Denies abscess or rash Neurologic Neurologic: Denies headache(s), paresthesias or weakness Psychiatric Psychiatric: Denies anxiety or suicidal thoughts [facility] Medical History Umbilical hernia Thyroid enlargement Spleen neoplasm Mesenteric adenitis Irregular heart beat Decreased GFR Obesity Nodule of right lung Recurrent headache Lightheadedness Tobacco use Rectal bleeding GERD (gastroesophageal reflux disease) Home Medications ?Medication ?Instructions ?Recorded ?Last Taken ?Type docusate sodium 100 mg capsule 100 mg PO BID PRN PRN Constipation 05/16/19 Unknown Rx #60 caps ibuprofen 800 mg tablet 800 mg PO TID PRN PRN Pain #60 tabs 05/16/19 Unknown Rx meloxicam 15 mg tablet 15 mg PO DAILY 10/25/22 Unknown History omeprazole 40 mg capsule,delayed 40 mg PO DAILY 10/25/22 Unknown History release semaglutide (weight loss) 0.25 0.25 mg subcut QWEEK 10/25/22 Unknown History mg/0.5 mL subcutaneous pen injector (Brice) varenicline 0.5 mg tablet 0.5 mg PO DIRECTED 10/25/22 Unknown History levofloxacin 750 mg tablet 750 mg PO Q24H #5 tabs 10/29/23 Unknown Rx Allergy/AdvReac Type Severity Reaction Status Date / Time No Known Allergies Allergy Verified 10/29/23 11:36 Family History (Updated 10/25/22 @ 08:02 by Queenie Marr) Mother Asthma Lung cancer Aunt Breast cancer Aunt Breast cancer Father Hypertension Surgical History H/O tubal ligation H/O: hysterectomy Social History Smoking Status: Current every day smoker tobacco type: e-cigarettes alcohol intake: current alcohol intake frequency: holidays/special occasions only EXAM Physical Exam Const Vital Signs: 10/29/23 11:36 10/29/23 11:36 10/29/23 11:51 Temperature 98.9 F Temperature Source Temporal Pulse Rate 99 111 H Respiratory Rate 18 20 H Respiratory Effort Normal Respiratory Depth Normal Respiratory Pattern Normal Blood Pressure 153/103 H 161/110 H Blood Pressure Mean 119 127 Pulse Ox 97 93 Oxygen Delivery Method Room Air Room Air Room Air Positive well nourished, well developed and obese General Appearance ED: well developed and NAD Nutritional Appearance: obese HEENT Reports moist mucous membranes HEENT Narrative: TMs normal bilaterally. EAC normal bilaterally. No mastoid swelling, redness, tenderness. normocephalic and atraumatic Throat: posterior oropharynx normal Eyes PERRL and EOMs intact bilaterally Neck full ROM, no lymphadenopathy and supple Resp normal respiratory effort and clear to auscultation bilaterally Effort and Inspection: able to speak in complete sentences Cardio regular rate, regular rhythm and no murmurs GI non-tender and non-distended Auscultation: normoactive bowel sounds Palpation: soft Back/Spine no CVA tenderness General Back: other FROM Extremity normal to inspection General Extremety ED: Negative for edema, pulses abnormal or tenderness General Extremity: Negative for edema or pulses abnormal Neuro oriented x3, CN's II-XII intact bilaterally and no sensory deficits noted Sensorium / Orientation: awake and alert Motor Exam: strength 5/5 throughout Psych mental status grossly normal Skin no rashes or lesions noted and no wounds MDM MDM MDM Narrative Medical decision making narrative: As I discussed with the patient, the nodule she is referring to is an incidental finding from before, I agree she needs routine follow-up and imaging, but I do not think that is necessarily related to her acute illness which sounds like viral wheezy bronchitis. Obtained a chest x-ray and a COVID/influenza/RSV swab, the swab is negative, the two-view chest x-ray to my interpretation shows possible left lower lobe infiltrate although I do not see much on the lateral. Radiology is calling this pneumonia as well. I am going to treat her as if this could be pneumonia advised that she take measures to mitigate diarrhea with probiotic and/or yogurt, she is asking for work note which was given, stable for discharge as an outpatient, she is not hypoxic or septic. History & Record Review Additional record(s) reviewed:: Other (CT abdomen/pelvis 03/10/2022: 2.8 mm noncalcified nodule peripheral lateral aspect right lower lobe, 12-month follow- up CT chest recommended at that time) Radiography Diagnostic Testing: Clinical Impression(s) from Imaging Studies Chest X-Ray 10/29/23 12:06 IMPRESSION: Patchy left lower lobe infiltrate. Electronically Signed: Lee Patel MD at 12:31 EDT , Discharge Plan Triage Chief Complaint: Cough ED Provider: Guy Juarez Dx/Rx/DC Orders Clinical Impression: Pneumonia Instructions: ED Pneumonia (Adult) Prescriptions: New levofloxacin 750 mg tablet 750 mg PO Q24H Qty: 5 0RF No Action Wegovy 0.25 mg/0.5 mL pen injector 0.25 mg subcut QWEEK Rx Instructions: administer weeks 1 through 4 of therapy omeprazole 40 mg capsule,delayed release(DR/EC) 40 mg PO DAILY meloxicam 15 mg tablet 15 mg PO DAILY varenicline 0.5 mg tablet 0.5 mg PO DIRECTED Rx Instructions: take 1 tablet by mouth daily on days 1-3; then 1 tablet twice daily (morning and evening) on days 4-7 ibuprofen 800 MG tablet 800 mg PO TID PRN PRN (Reason: Pain) Qty: 60 1RF docusate sodium 100 MG capsule 100 mg PO BID PRN PRN (Reason: Constipation) Qty: 60 1RF Stand Alone Forms: ED Work / School Excuse Primary Care Provider: Abdelrahman Downey Referrals: Abdelrahman Downey DO [Primary Care Provider] - 5-7 Days Print Language: Wallisian Disposition Disposition: Home, Self Care
--- NOTE | 2023-10-29 12:06 | RAD_ITS ---
STUDY: X-RAY CHEST REASON FOR EXAM: Female, 33 years old. Cough/sob TECHNIQUE: PA and lateral views of the chest. COMPARISON: None. FINDINGS: Patchy left lower lobe infiltrate. There is no demonstrated pleural abnormality. Normal size heart. Normal mediastinum and nunu. Normal visualized pulmonary arteries. Normal visualized aortic arch and descending thoracic aorta. Normal visualized thoracic spine. Normal visualized ribs, clavicles, and shoulders. There is no demonstrated abnormality of the visualized soft tissue structures of the upper abdomen. RAD/Chest PA and Lateral IMPRESSION: Patchy left lower lobe infiltrate. Electronically Signed: Lee Patel MD at 12:31 EDT ,
== END 2023-10-29 14:18 | disposition home or self-care (01) ==
PROVIDERS: Emergency Provider Emergency Medicine; PCP Student in an Organized Health Care Education/Training Program; Visit Provider Emergency Medicine
DX: J18.9 Pneumonia, unspecified organism (principal); K21.9 Gastro-esophageal reflux disease without esophagitis; Z79.899 Other long term (current) drug therapy; N99.89 Other postprocedural complications and disorders of genitourinary system; Z90.710 Acquired absence of both cervix and uterus; F17.290 Nicotine dependence, other tobacco product, uncomplicated
CPT/HCPCS: 71046; 87631; 99282